=== PATIENT | female | born 1995 | race Caucasian/White ===

== ENCOUNTER 2018-07-29 10:19 | Emergency (ER) | END 2018-07-29 11:27 | disposition home or self-care (01) ==

== ENCOUNTER 2018-08-23 11:17 | Emergency (ER) | payer OTHER ==
[~2018-08-23] VITALS: Wt 42.5 kg
[~2018-08-23 11:17] MED LIST: ASC500 PO; BEN50 PO; FER325 PO; LEVE-5 PO
[2018-08-23 11:20] VITALS: BP 110/57; PULSE 84; RESP 18
--- NOTE | 2018-08-23 11:44 | ERD ---
ER Documentation Chief Complaint Chief Complaint SEND BY CLINIC HAS VICTORIA S/P SEIZURE LAST MONDAY, HPI 23-year-old female with history of seizure disorders, presents the emergency department, referred by her clinic for evaluation of headache after a ground- level fall that occurred while the patient was having a seizure 5 days ago. The pain is dull, constant, 4/10. The patient denies distal weakness, numbness or tingling. No blurred vision, no nausea or vomiting. The patient's medications for her seizure disorders include Lamictal and Keppra, she refers roc martinez with medications, she has a follow-up appointment with her neurologist in 1 week. ROS All systems reviewed and are negative except as per history of present illness. Medications Home Meds Active Scripts Lamotrigine* (Lamictal* CHEW) 25 Mg Tab.disper, 25 MG PO BID, #60 TAB.CHEW Prov:MIAN ALONSO MD 08/23/18 Reported Medications Levetiracetam* (Levetiracetam*) 750 Mg Tablet, 750 MG PO BID, TAB 08/23/18 Lamotrigine* (Lamotrigine*) 100 Mg Tablet, 100 MG PO BID, TAB 08/23/18 Discontinued Scripts Diphenhydramine Hcl* (Benadryl*) 50 Mg Cap, 50 MG PO Q6H PRN for ITCHING/RASH, #30 CAP 0 Refills Prov:AGNIESZKA CLARKE 07/29/18 Ascorbic Acid (Vitamin C) 500 Mg Tab, 500 MG PO BID, #60 TAB Prov:BERNARDINO GREGORIO MD 10/27/15 Ferrous Sulfate* (Ferrous Sulfate*) 325 Mg Tabec, 325 MG PO BID, #60 TAB Prov:BERNARDINO GREGORIO MD 10/27/15 Levetiracetam* (Keppra*) 500 Mg Tab, 500 MG PO BID, #1 TAB Prov:BERNARDINO GREGORIO MD 10/24/15 Allergies Allergies: Coded Allergies: No Known Drug Allergies (Verified Allergy, Unknown, 08/23/18) PMhx/Soc History of Surgery: No Anesthesia Reaction: No Hx Neurological Disorder: Yes (seizures on Keppra and lamictal) Hx Respiratory Disorders: No Hx Cardiac Disorders: No Hx Psychiatric Problems: No Hx Miscellaneous Medical Probl: No Hx Alcohol Use: No Hx Substance Use: No Hx Tobacco Use: No FmHx Family History: No diabetes, No coronary disease Physical Exam Vitals Vital Signs Date Temp Pulse Resp B/P (MAP) Pulse Ox O2 O2 Flow FiO2 Time Delivery Rate 08/23/18 99.8 84 18 110/57 99 11:20 (74) Physical Exam Const: No acute distress Head: Atraumatic Eyes: Normal Conjunctiva ENT: Normal External Ears, Nose and Mouth. Neck: Full range of motion. No meningismus. Resp: Clear to auscultation bilaterally Cardio: Regular rate and rhythm, no murmurs Abd: Soft, non tender, non distended. Normal bowel sounds Skin: No petechiae or rashes Back: No midline or flank tenderness Ext: No cyanosis, or edema Neur: Awake and alert Psych: Normal Mood and Affect Procedures/MDM Vital signs stable. Differential diagnosis include but not limited to: Head c oncussion, contusion, skull fracture, vertebral fracture, intracranial hemorrhage. Physical examination and clinical presentation consistent most likely with head contusion with unremarkable neurovascular exam. No clinical indication for a CT of the head at this time, the family agreed with this decision. During the ED course the patient remained stable, no new complaints. The patient was instructed to follow up with the primary care provider in the next 48h. If symptoms persist, worsen or new symptoms develop like nausea, vomiting, behavioral changes, and lethargy, then patient should return to the ED immediately. Instructions explained and given directly by me to the mother with acknowledgment and demonstrated understanding. Disclaimer: Inadvertent spelling and grammatical errors are likely due to EHR/dictation software use and do not reflect on the overall quality of patient care. Also, please note that the electronic time recorded on this note does not necessarily reflect the actual time of the patient encounter. Departure Diagnosis: Primary Impression: Seizure disorder Additional Impression: Contusion of head Condition: Stable Patient Instructions: Seizure, Recurrent [Adult] Additional Instructions: Thank you very much for allowing us to participate in your care. Your health and safety is our top priority at [facility]. Call your primary care doctor TOMORROW for an appointment during the next 2-4 days and bring all the information and medications prescribed. Have prescriptions filled and follow precisely the directions on the label. If the symptoms get worse and your provider is unavailable, return to the Emergency Department immediately. MIAN ALONSO MD Aug 23, 2018 11:44
[2018-08-23] MEDS ORDERED: LAMO100T PO (16:40)
[2018-08-23] MEDS ORDERED: LEVE750T8 PO (16:41)
[2018-08-23] MEDS ORDERED: LAMO25TB2 PO (18:15)
== END 2018-08-23 12:10 | disposition home or self-care (01) ==
LOC: FTE 11:17
DX: G40.909 Epilepsy, unspecified, not intractable, without status epilepticus (principal); S00.93XA Contusion of unspecified part of head, initial encounter; X58.XXXA Exposure to other specified factors, initial encounter; Y92.9 Unspecified place or not applicable
CPT/HCPCS: 99282